=== PATIENT | male | born 1960 | race Caucasian/White ===

== ENCOUNTER 2017-04-14 01:02 | Outpatient (CLI) | payer OTHER | END 2017-04-14 01:03 | disposition short-term general hospital (02) | LOC: EMS 01:02 | PROVIDERS: ATTEND Surgery | DX: R07.9 Chest pain, unspecified (principal); R06.02 Shortness of breath | CPT/HCPCS: A0425; A0427 ==

== ENCOUNTER 2017-10-18 23:11 | Emergency (ER) | payer OTHER ==
[2017-10-18] MEDS ORDERED: MORPHINE 2 MG/ML CARPUJECT IVP STA (23:37)
[2017-10-18] MEDS ORDERED: SODIUM CHLORIDE 0.9% 1,000 ML IV ONE (23:37)
[2017-10-18] MEDS ORDERED: ONDANSETRON 4 MG/2 ML VIAL IVP STA (23:37)
[2017-10-18 23:51] LABS: BASOPHILS # (AUTO) 0.1 10^3/uL (0.0-0.1); BASOPHILS % (AUTO) 0.5 %; EOSINOPHILS # (AUTO) 0.3 10^3/uL (0.0-0.7); EOSINOPHILS % (AUTO) 2.7 %; HGB - HEMOGLOBIN 14.3 g/dL (14.0-18.0); LYMPHOCYTES # (AUTO) 3.3 10^3/uL (1.5-3.5); LYMPHOCYTES % (AUTO) 26.8 %; MEAN CORPUSCULAR HEMOGLOBIN 29.3 pg (27.0-31.0); MEAN CORPUSCULAR HGB CONC 33.8 g/dL (32.0-36.0); MEAN CORPUSCULAR VOLUME 86.6 fL (80.0-94.0); MEAN PLATELET VOLUME 7.3 fL (7.4-11.4); MONOCYTES # (AUTO) 1.1 10^3/uL (0.0-1.0); MONOCYTES % (AUTO) 9.1 %; NEUTROPHILS # (AUTO) 7.5 10^3/uL (1.5-6.6); NEUTROPHILS % (AUTO) 60.9 %; PLT - PLATELET COUNT 271 10^3/uL (130-450); RED BLOOD COUNT 4.87 10^6/uL (4.70-6.10); RED CELL DISTRIBUTION WIDTH 13.1 % (12.0-15.0); WHITE BLOOD COUNT 12.4 x10^3/uL (4.8-10.8)
[2017-10-19 00:15] LABS: ALBUMIN 4.1 g/dL (3.2-5.5); ALBUMIN/GLOBULIN RATIO 1.2 (1.0-2.2); BILIRUBIN,TOTAL 0.4 mg/dL (0.2-1.0); CALCIUM 9.6 mg/dL (8.5-10.3); CREATININE 1.4 mg/dL (0.6-1.2); MAGNESIUM 1.9 mg/dL (1.7-2.8); PHOSPHORUS 4.4 mg/dL (2.5-4.6); TOTAL PROTEIN 7.4 g/dL (6.7-8.2)
[2017-10-19 00:30] LABS: BILIRUBIN,URINE NEGATIVE (NEGATIVE); GLUCOSE, URINE (UA) NEGATIVE (NEGATIVE); KETONES,URINE (UA) NEGATIVE (NEGATIVE); LEUKOCYTE ESTERASE, URINE NEGATIVE (NEGATIVE); NITRITE,URINE NEGATIVE (NEGATIVE); OCCULT BLOOD,URINE NEGATIVE (NEGATIVE); PROTEIN,URINE NEGATIVE (NEGATIVE); UROBILINOGEN,URINE 0.2 (NORMAL) E.U./dL (NORMAL)
[2017-10-19 00:34] LABS: CLARITY,URINE CLEAR (CLEAR)
--- NOTE | 2017-10-19 00:52 | ED Physician Documentation ---
PD HPI NVD - Stated complaint Stated Complaint: LOOSE STOOL - Chief complaint Chief Complaint: Abd Pain - History obtained from History obtained from: Patient, Family - History of Present Illness Timing - onset: Today Timing - details: Gradual onset, Still present Associated symptoms: Abdominal pain, Loss of appetite Contributing factors: No: Travel, Recent antibiotics Similar symptoms before: No diagnosis Recently seen: Not recently seen - Additonal information Additional information: Patient is a 57 year old male with no significant past medical history who is presenting to the emergency department for diarrhea and abdominal cramping. patient states that it has been going on for the last couple of days. patient states that the cramping has become worse so he came in. patient states that the pain is mainly in the right lower quadrant. Patient had an appendectomy as a child. Review of Systems Constitutional: denies: Fever, Chills Eyes: denies: Decreased vision Ears: reports: Reviewed and negative Nose: reports: Reviewed and negative Throat: reports: Reviewed and negative Cardiac: denies: Chest pain / pressure, Palpitations Respiratory: denies: Dyspnea, Cough, Wheezing GI: reports: Abdominal Pain, Nausea, Diarrhea. denies: Vomiting : denies: Dysuria, Frequency Neurologic: denies: Generalized weakness, Focal weakness Immunocompromised: denies: Immunocompromised PD PAST MEDICAL HISTORY - Past Medical History Past Medical History: Yes Cardiovascular: Hypertension, [place] Endocrine/Autoimmune: Type 2 diabetes GI: Diverticulitis Musculoskeletal: Osteoarthritis - Past Surgical History Past Surgical History: Yes General: Appendectomy, Bowel surgery Ortho: Arthroscopic surgery Cardiovascular: Coronary stent HEENT: Tonsil/Adenoidectomy - Present Medications Home Medications: Ambulatory Orders Medication Instructions Recorded Confirmed Aspirin [Aspirin EC] 81 mg PO DAILY 10/18/17 10/18/17 Clopidogrel [Plavix] 1 tab PO DAILY 10/18/17 10/18/17 Insulin Glargine [Lantus Solostar] 10/18/17 Metoprolol Tartrate 1 tab PO BID 10/18/17 10/18/17 Dicyclomine [Bentyl] 10 mg PO QID #20 capsule 10/19/17 Levothyroxine Sodium [Synthroid] 1 tab PO DAILY 10/19/17 10/19/17 Losartan Potassium 1 tab PO DAILY 10/19/17 10/19/17 Ondansetron Odt [Zofran] 4 mg TL Q6H PRN #20 tablet 10/19/17 hydroCHLOROthiazide [Hydrodiuril] 1 tab PO DAILY 10/19/17 10/19/17 - Allergies Allergies/Adverse Reactions: Allergies Allergy/AdvReac Type Severity Reaction Status Date / Time Penicillins Allergy Rash Verified 10/18/17 23:21 Sulfa (Sulfonamide Allergy Rash Verified 10/18/17 23:21 Antibiotics) - Social History Does the pt smoke?: No Smoking Status: Never smoker Does the pt drink ETOH?: No Does the pt have substance abuse?: No - Immunizations Immunizations are current?: Yes - POLST Patient has POLST: No PD ED PE NORMAL - Vitals Vital signs reviewed: Yes - General General: Alert and oriented X 3, No acute distress, Well developed/nourished - HEENT HEENT: Atraumatic, PERRL - Neck Neck: Supple, no meningeal sign - Cardiac Cardiac: RRR, No murmur - Respiratory Respiratory: No respiratory distress - Derm Derm: Normal color, Warm and dry, No rash - Extremities Extremities: No deformity - Neuro Neuro: Alert and oriented X 3, No motor deficit, No sensory deficit Eye Opening: Spontaneous - Psych Psych: Normal mood PD ED PE EXPANDED - HEENT HEENT: Dry mucous membranes - Abdomen Abdomen: Tender to palpation, RLQ. No: Rebound, Guarding, RUQ Results - Vitals Vitals: Vital Signs - 24 hr 10/18/17 10/19/17 10/19/17 23:15 00:02 00:21 Temperature 36.5 C Heart Rate 80 69 76 Respiratory 22 16 16 Rate Blood Pressure 186/101 H 155/96 H 152/102 H O2 Saturation 97 95 97 Oxygen O2 Source Room air - Labs Labs: Laboratory Tests 10/18/17 10/18/17 10/18/17 23:35 23:35 23:37 WBC 12.4 H RBC 4.87 Hgb 14.3 Hct 42.2 MCV 86.6 MCH 29.3 MCHC 33.8 RDW 13.1 Plt Count 271 MPV 7.3 L Neut # 7.5 H Lymph # 3.3 [place] # 1.1 H Eos # 0.3 Baso # 0.1 Absolute Nucleated RBC 0.00 Nucleated RBC % 0.0 Sodium 136 Potassium 3.7 Chloride 97 L Carbon Dioxide 25 Anion Gap 14.0 H BUN 21 H Creatinine 1.4 H Estimated GFR (MDRD) 52 L Glucose 208 H Calcium 9.6 Phosphorus 4.4 Magnesium 1.9 Total Bilirubin 0.4 AST 15 ALT 14 Alkaline Phosphatase 60 Total Protein 7.4 Albumin 4.1 Globulin 3.3 Albumin/Globulin Ratio 1.2 Lipase 16 L Urine Color Urine Clarity Urine pH Ur Specific [place] Urine Protein Urine Glucose (UA) Urine Ketones Urine Occult Blood Urine Nitrite Urine Bilirubin Urine Urobilinogen Ur Leukocyte Esterase Ur Microscopic Review Urine Culture Comments Influenza A (Rapid) Negative Influenza B (Rapid) Negative Influenza Types A,B Ag - 10/19/17 00:23 WBC RBC Hgb Hct MCV MCH MCHC RDW Plt Count MPV Neut # Lymph # [place] # Eos # Baso # Absolute Nucleated RBC Nucleated RBC % Sodium Potassium Chloride Carbon Dioxide Anion Gap BUN Creatinine Estimated GFR (MDRD) Glucose Calcium Phosphorus Magnesium Total Bilirubin AST ALT Alkaline Phosphatase Total Protein Albumin Globulin Albumin/Globulin Ratio Lipase Urine Color YELLOW Urine Clarity CLEAR Urine pH 6.0 Ur Specific [place] 1.025 Urine Protein NEGATIVE Urine Glucose (UA) NEGATIVE Urine Ketones NEGATIVE Urine Occult Blood NEGATIVE Urine Nitrite NEGATIVE Urine Bilirubin NEGATIVE Urine Urobilinogen 0.2 (NORMAL) Ur Leukocyte Esterase NEGATIVE Ur Microscopic Review NOT INDICATED Urine Culture Comments NOT INDICATED Influenza A (Rapid) Influenza B (Rapid) Influenza Types A,B Ag PD MEDICAL DECISION MAKING - ED course Complexity details: reviewed old records, reviewed results, re-evaluated patient , considered differential, d/w patient, d/w family ED course: Patient was seen and examined at bedside. labs were drawn and urine was collected. patient was treated with IV fluids, zofran and morphine. Patient's labs showed a mild leukocytosis but patient does not have his appendix. Patient' s symptoms were likely viral in nature. patient required no further work up and was stable for discharge with outpatient follow up. Departure - Departure Disposition: 01 Home, Self Care Clinical Impression: Gastroenteritis Condition: Good Instructions: ED Gastroenteritis Viral Follow-Up: Sherron Hemphill MD [Primary Care Provider] - Within 3 Days Prescriptions: Dicyclomine [Bentyl] 10 mg PO QID #20 capsule Ondansetron Odt [Zofran] 4 mg TL Q6H PRN #20 tablet PRN Reason: Nausea / Vomiting Comments: Your symptoms today are likely viral in nature. It is important to take the zofran as needed for nausea and stay well hydrated with gatorade or other electrolyte solutions. You can take motrin or tylenol for pain and bentyl for abdominal spasm. You should follow up with your doctor if your symptoms persist. You may return to the emergency department at any time for new, worsening or uncontrollable symptoms.
[2017-10-19 01:16] VITALS: BP 140/92
== END 2017-10-19 01:10 | disposition home or self-care (01) ==
LOC: ED 23:11
DX: K52.9 Noninfective gastroenteritis and colitis, unspecified (principal); E11.9 Type 2 diabetes mellitus without complications; I10 Essential (primary) hypertension; I25.2 Old myocardial infarction; Z79.82 Long term (current) use of aspirin; Z79.4 Long term (current) use of insulin
CPT/HCPCS: 36415; 80053; 81001; 81003; 83690; 83735; 84100; 85025; 87086; 87275; 87276; 96361; 96374; 96375; 99283; 99284

== ENCOUNTER 2017-10-30 19:23 | Emergency (ER) | payer OTHER ==
--- NOTE | 2017-10-30 20:40 | ED Physician Documentation ---
PD HPI ABD PAIN - Stated complaint Stated Complaint: NAUSEA/R SIDE PAIN - Chief complaint Chief Complaint: Abd Pain - History obtained from History obtained from: Patient - History of Present Illness Timing - onset: Enter time (17:00), Today Timing - duration: Hours Timing - details: Abrupt onset, Waxing and waning Quality: Cramping, Pain Location: RUQ Radiation: Other (no radiation) Improved by: Other (no ameliorating factors) Worsened by: Other (no exacerbating factors) Associated symptoms: Nausea, Vomiting (only when pain is most intense). No: Fever, Diarrhea, Constipation Similar symptoms before: Has not had sx before Recently seen: Not recently seen - Additional information Additional information: right upper quadrant abdominal pain started 5 pm tonight, waxing and waning. similar episode 3 days ago but that resolved spontaneously and did not recur until this afternoon. Review of Systems Constitutional: reports: Sweats. denies: Fever, Chills Cardiac: reports: Reviewed and negative Respiratory: reports: Reviewed and negative GI: reports: Abdominal Pain, Nausea, Vomiting. denies: Abdominal Swelling, Constipation, Diarrhea : denies: Dysuria, Frequency PD PAST MEDICAL HISTORY - Past Medical History Past Medical History: Yes Cardiovascular: Hypertension, [place] Respiratory: None Neuro: None Endocrine/Autoimmune: Type 2 diabetes GI: Diverticulitis : None HEENT: None Psych: None Musculoskeletal: Osteoarthritis Derm: None - Past Surgical History Past Surgical History: Yes General: Appendectomy, Bowel surgery Ortho: Arthroscopic surgery Cardiovascular: Coronary stent HEENT: Tonsil/Adenoidectomy - Present Medications Home Medications: Ambulatory Orders Medication Instructions Recorded Confirmed Aspirin [Aspirin EC] 81 mg PO DAILY 10/18/17 10/18/17 Clopidogrel [Plavix] 1 tab PO DAILY 10/18/17 10/18/17 Insulin Glargine [Lantus Solostar] 10/18/17 Metoprolol Tartrate 1 tab PO BID 10/18/17 10/18/17 Dicyclomine [Bentyl] 10 mg PO QID #20 capsule 10/19/17 Levothyroxine Sodium [Synthroid] 1 tab PO DAILY 10/19/17 10/19/17 Losartan Potassium 1 tab PO DAILY 10/19/17 10/19/17 Ondansetron Odt [Zofran] 4 mg TL Q6H PRN #20 tablet 10/19/17 hydroCHLOROthiazide [Hydrodiuril] 1 tab PO DAILY 10/19/17 10/19/17 - Allergies Allergies/Adverse Reactions: Allergies Allergy/AdvReac Type Severity Reaction Status Date / Time Penicillins Allergy Rash Verified 10/30/17 19:32 Sulfa (Sulfonamide Allergy Rash Verified 10/30/17 19:32 Antibiotics) - Social History Does the pt smoke?: No Smoking Status: Never smoker Does the pt drink ETOH?: No Does the pt have substance abuse?: No - Immunizations Immunizations are current?: Yes - POLST Patient has POLST: No PD ED PE NORMAL - Vitals Vital signs reviewed: Yes - General General: Alert and oriented X 3, No acute distress, Well developed/nourished - HEENT HEENT: Moist mucous membranes - Cardiac Cardiac: RRR, No murmur - Respiratory Respiratory: No respiratory distress, Clear bilaterally - Abdomen Abdomen: Normal bowel sounds, Soft, Non tender, Non distended, No organomegaly - Back Back: No CVA TTP Results - Vitals Vitals: Vital Signs - 24 hr 10/30/17 10/31/17 10/31/17 19:28 00:29 01:36 Temperature 36.6 C 36.7 C Heart Rate 104 H 100 76 Respiratory 17 16 18 Rate Blood Pressure 160/105 H 132/93 H 132/68 H O2 Saturation 97 93 97 Oxygen O2 Source Room air - Labs Labs: Laboratory Tests 10/30/17 10/30/17 10/30/17 20:10 21:11 21:11 WBC 14.5 H RBC 5.02 Hgb 14.4 Hct 43.4 MCV 86.5 MCH 28.7 MCHC 33.3 RDW 12.9 Plt Count 277 MPV 7.6 Neut # 11.5 H Lymph # 1.8 [place] # 1.0 Eos # 0.1 Baso # 0.1 Absolute Nucleated RBC 0.00 Nucleated RBC % 0.0 Sodium 131 L Potassium 3.6 Chloride 95 L Carbon Dioxide 26 Anion Gap 10.0 BUN 18 Creatinine 1.1 Estimated GFR (MDRD) 69 L Glucose 319 H Calcium 9.0 Total Bilirubin 1.7 H AST 113 H ALT 57 Alkaline Phosphatase 179 H Total Protein 7.7 Albumin 3.9 Globulin 3.8 Albumin/Globulin Ratio 1.0 Lipase 25 Urine Color DARK YELLOW Urine Clarity CLEAR Urine pH 5.5 Ur Specific [place] >=1.030 H Urine Protein 30 H Urine Glucose (UA) 250 H Urine Ketones NEGATIVE Urine Occult Blood NEGATIVE Urine Nitrite NEGATIVE Urine Bilirubin NEGATIVE Urine Urobilinogen 1 (NORMAL) Ur Leukocyte Esterase NEGATIVE Urine RBC 0-5 Urine WBC 0-3 Ur Squamous Epith Cells NONE SEEN Urine Bacteria Rare Urine Casts 3-5 Fine Granular Ur Microscopic Review INDICATED Urine Culture Comments NOT INDICATED - Rads (name of study) RUQ US Radiology: Prelim report reviewed, See rad report PD MEDICAL DECISION MAKING - ED course Complexity details: reviewed results, re-evaluated patient, considered differential, d/w patient Departure - Departure Disposition: 01 Home, Self Care Clinical Impression: Abdominal pain Condition: Good Instructions: ED Abdominal Pain Unkn Cause Male Follow-Up: Sherron Hemphill MD [Primary Care Provider] - (Call to arrange for next available appointment) Discharge Date/Time: 10/31/17 01:41
[2017-10-30] MEDS ORDERED: KETOROLAC 60 MG/2 ML VIAL IVP STA (21:01)
[2017-10-30 21:18] LABS: BASOPHILS # (AUTO) 0.1 10^3/uL (0.0-0.1); EOSINOPHILS # (AUTO) 0.1 10^3/uL (0.0-0.7); EOSINOPHILS % (AUTO) 0.4 %; HGB - HEMOGLOBIN 14.4 g/dL (14.0-18.0); LYMPHOCYTES # (AUTO) 1.8 10^3/uL (1.5-3.5); LYMPHOCYTES % (AUTO) 12.3 %; MEAN CORPUSCULAR HEMOGLOBIN 28.7 pg (27.0-31.0); MEAN CORPUSCULAR HGB CONC 33.3 g/dL (32.0-36.0); MEAN CORPUSCULAR VOLUME 86.5 fL (80.0-94.0); MEAN PLATELET VOLUME 7.6 fL (7.4-11.4); MONOCYTES % (AUTO) 6.7 %; NEUTROPHILS # (AUTO) 11.5 10^3/uL (1.5-6.6); NEUTROPHILS % (AUTO) 79.6 %; PLT - PLATELET COUNT 277 10^3/uL (130-450); RED BLOOD COUNT 5.02 10^6/uL (4.70-6.10); RED CELL DISTRIBUTION WIDTH 12.9 % (12.0-15.0); WHITE BLOOD COUNT 14.5 x10^3/uL (4.8-10.8)
[2017-10-30 21:23] LABS: GLUCOSE, URINE (UA) 250 mg/dL (NEGATIVE); KETONES,URINE (UA) NEGATIVE (NEGATIVE); LEUKOCYTE ESTERASE, URINE NEGATIVE (NEGATIVE); NITRITE,URINE NEGATIVE (NEGATIVE); OCCULT BLOOD,URINE NEGATIVE (NEGATIVE); PH,URINE 5.5 PH (5.0-7.5); PROTEIN,URINE 30 mg/dL (NEGATIVE); UROBILINOGEN,URINE 1 (NORMAL) E.U./dL (NORMAL)
[2017-10-30 21:28] LABS: BILIRUBIN,URINE NEGATIVE (NEGATIVE); CLARITY,URINE CLEAR (CLEAR); ICTOTEST,URINE NEGATIVE
[2017-10-30 21:31] LABS: ALBUMIN 3.9 g/dL (3.2-5.5); BILIRUBIN,TOTAL 1.7 mg/dL (0.2-1.0); CREATININE 1.1 mg/dL (0.6-1.2); TOTAL PROTEIN 7.7 g/dL (6.7-8.2)
[2017-10-30 21:35] LABS: BACTERIA,URINE Rare /HPF (None Seen); RBC,URINE 0-5 /HPF (0-5); SQUAMOUS EPITHELIAL CELL,UR NONE SEEN (<= Few)
--- NOTE | 2017-10-30 22:28 | Ultrasound Preliminary Report ---
Exam: US ABDOMEN LIMITED IMPRESSION: 1. No gallstones are seen but there is gallbladder wall thickening and focal tenderness. Cholecystiti s not excluded. 2. Possible trace pericholecystic fluid. 3. No biliary dilatation seen. 4. Fatty liver. [facility] SITE ID: [id number]
--- NOTE | 2017-10-30 22:28 | Ultrasound Report ---
EXAM: ABDOMEN ULTRASOUND LIMITED, RUQ EXAM DATE: 10/30/2017 10:22 PM. CLINICAL HISTORY: Abdominal pain. COMPARISON: None. TECHNIQUE: Real-time scanning was performed with static images obtained. FINDINGS: Liver: Coarse heterogeneous echotexture with fatty infiltration. 17.4 cm. Main portal vein flow: Hepa topetal. Gallbladder: No gallstones are seen. There is gallbladder wall thickening measuring up to 6 mm. There may be trace pericholecystic fluid. Focal tenderness is noted over the gallbladder. Biliary System: CBD measures 5 mm. No intrahepatic or extrahepatic ductal dilatation. Other: Right kidney measures 11.3 cm and appears normal. Visualized portions of the pancreas are unre markable. IMPRESSION: 1. No gallstones are seen but there is gallbladder wall thickening and focal tenderness. Cholecystiti s not excluded. 2. Possible trace pericholecystic fluid. 3. No biliary dilatation seen. 4. Fatty liver. [facility] Referring Provider Line: [phone] SITE ID: [id number]
[2017-10-30] MEDS ORDERED: ONDANSETRON 4 MG/2 ML VIAL IVP STA (22:59)
[2017-10-31] MEDS ORDERED: ACETAMINOPHEN 325 MG TABLET PO STA (00:24)
[2017-10-31] MEDS ORDERED: oxyCODONE/ACET 5/325 Prepack 4 PO STA (01:17)
[2017-10-31 01:38] VITALS: BP 132/68
== END 2017-10-31 01:41 | disposition home or self-care (01) ==
LOC: ED 19:23
DX: R10.11 Right upper quadrant pain (principal); I10 Essential (primary) hypertension; I25.2 Old myocardial infarction; E11.9 Type 2 diabetes mellitus without complications; Z79.4 Long term (current) use of insulin; Z95.5 Presence of coronary angioplasty implant and graft; Z79.82 Long term (current) use of aspirin
CPT/HCPCS: 36415; 76705; 80053; 81001; 83690; 85025; 96374; 96375; 99283; A9270; 81003; 87086

== ENCOUNTER 2021-08-03 12:09 | Emergency (ER) | payer OTHER ==
[2021-08-03 12:33] LABS: BASOPHILS % (AUTO) 0.3 %; EOSINOPHILS # (AUTO) 0.4 10^3/uL (0.0-0.7); EOSINOPHILS % (AUTO) 3.9 %; HCT - HEMATOCRIT 51.9 % (42.0-52.0); HGB - HEMOGLOBIN 17.1 g/dL (14.0-18.0); LYMPHOCYTES # (AUTO) 3.5 10^3/uL (1.5-3.5); LYMPHOCYTES % (AUTO) 34.8 %; MEAN CORPUSCULAR HEMOGLOBIN 30.5 pg (27.0-31.0); MEAN CORPUSCULAR HGB CONC 32.9 g/dL (32.0-36.0); MEAN CORPUSCULAR VOLUME 92.5 fL (80.0-94.0); MEAN PLATELET VOLUME 9.1 fL (7.4-11.4); MONOCYTES % (AUTO) 9.7 %; NEUTROPHILS # (AUTO) 5.2 10^3/uL (1.5-6.6); NEUTROPHILS % (AUTO) 50.8 %; PLT - PLATELET COUNT 280 10^3/uL (130-450); RED BLOOD COUNT 5.61 10^6/uL (4.70-6.10); RED CELL DISTRIBUTION WIDTH 12.8 % (12.0-15.0); WHITE BLOOD COUNT 10.2 x10^3/uL (4.8-10.8)
[2021-08-03] MEDS ORDERED: NITROGLYCERIN 2% PASTE TOP STA (12:35)
[2021-08-03] MEDS ORDERED: NITROGLYCERIN SL 0.4 MG TABLET SL STA (12:35)
[2021-08-03] MEDS ORDERED: ASPIRIN CHEW 81 MG TABLET PO STA (12:35)
[2021-08-03] MEDS ORDERED: MORPHINE 2 MG/ML CARPUJECT IVP STA ×2 (12:36→13:14)
--- NOTE | 2021-08-03 12:38 | ED Physician Documentation ---
PD HPI CHEST PAIN - Stated complaint Stated Complaint: CP - Chief complaint Chief Complaint: Cardiac - History obtained from History obtained from: Patient - Additional information Additional information: 60-year-old gentleman with history of coronary disease, stented twice in the past, both under the care of Dr. Jimenez at [facility]. One 6 years ago and one 3 years ago. He was in his usual state of health checking email this morning at 9:30 AM, nothing exertional and developed substernal chest pressure radiating to the shoulders. It is associated with slight nausea and shortness of breath. It is similar to prior angina. No pedal edema or calf pain. No abdominal pain. Review of Systems Ten Systems: 10 systems reviewed and negative Constitutional: reports: Sweats Cardiac: reports: Chest pain / pressure. denies: Palpitations Respiratory: reports: Dyspnea. denies: Cough GI: denies: Abdominal Pain PD PAST MEDICAL HISTORY - Past Medical History Cardiovascular: Hypertension, [place] Respiratory: None Endocrine/Autoimmune: Type 2 diabetes GI: Diverticulitis : None HEENT: None Psych: None Musculoskeletal: Osteoarthritis Derm: None - Past Surgical History Past Surgical History: Yes General: Appendectomy, Bowel surgery Ortho: Arthroscopic surgery Cardiovascular: Coronary stent HEENT: Tonsil/Adenoidectomy - Present Medications Home Medications: Ambulatory Orders Medication Instructions Recorded Confirmed Aspirin [Aspirin EC] 81 mg PO DAILY 10/18/17 10/18/17 Clopidogrel [Plavix] 1 tab PO DAILY 10/18/17 10/18/17 Insulin Glargine [Lantus Solostar] 10/18/17 Metoprolol Tartrate 1 tab PO BID 10/18/17 10/18/17 Dicyclomine [Bentyl] 10 mg PO QID #20 capsule 10/19/17 Levothyroxine Sodium [Synthroid] 1 tab PO DAILY 10/19/17 10/19/17 Losartan Potassium 1 tab PO DAILY 10/19/17 10/19/17 Ondansetron Odt [Zofran] 4 mg TL Q6H PRN #20 tablet 10/19/17 hydroCHLOROthiazide [Hydrodiuril] 1 tab PO DAILY 10/19/17 10/19/17 - Allergies Allergies/Adverse Reactions: Allergies Allergy/AdvReac Type Severity Reaction Status Date / Time Penicillins Allergy Rash Verified 08/03/21 12:23 Sulfa (Sulfonamide Allergy Rash Verified 08/03/21 12:23 Antibiotics) - Social History Does the pt smoke?: No Smoking Status: Never smoker Does the pt drink ETOH?: No Does the pt have substance abuse?: No - Immunizations Immunizations are current?: Yes - POLST Patient has POLST: No PD ED PE NORMAL - Vitals Vital signs reviewed: Yes - General General: Alert and oriented X 3, Other (Appears uncomfortable) - HEENT HEENT: PERRL, EOMI - Neck Neck: Supple, no meningeal sign, No bony TTP - Cardiac Cardiac: RRR, No murmur - Respiratory Respiratory: No respiratory distress, Clear bilaterally - Abdomen Abdomen: Normal bowel sounds, Non tender - Back Back: No CVA TTP, No spinal TTP - Derm Derm: Normal color, Warm and dry - Extremities Extremities: No edema, No calf tenderness / cord - Neuro Neuro: Alert and oriented X 3, Normal speech - Psych Psych: Normal mood, Normal affect Results - Vitals Vitals: Vital Signs - 24 hr 08/03/21 08/03/21 08/03/21 12:19 12:53 13:52 Temperature 36.5 C Heart Rate 83 77 91 Respiratory 30 H 25 H 24 Rate Blood Pressure 144/83 H 126/92 H 137/91 H O2 Saturation 100 99 97 08/03/21 08/03/21 08/03/21 14:00 14:30 15:30 Temperature Heart Rate 82 78 78 Respiratory 20 20 19 Rate Blood Pressure 117/84 H 92/59 L 118/81 H O2 Saturation 97 98 98 08/03/21 08/03/21 08/03/21 16:00 16:30 17:30 Temperature Heart Rate 78 96 76 Respiratory 18 21 18 Rate Blood Pressure 123/81 H 107/76 108/82 H O2 Saturation 97 96 97 08/03/21 08/03/21 08/03/21 18:00 18:30 19:04 Temperature Heart Rate 72 78 82 Respiratory 19 20 19 Rate Blood Pressure 105/75 114/78 125/94 H O2 Saturation 99 97 98 08/03/21 08/03/21 08/03/21 19:30 20:00 20:30 Temperature Heart Rate 83 78 72 Respiratory 20 18 18 Rate Blood Pressure 110/77 113/72 111/82 H O2 Saturation 96 98 98 08/03/21 08/03/21 08/03/21 20:49 20:55 21:00 Temperature Heart Rate 82 83 74 Respiratory 23 18 18 Rate Blood Pressure 110/82 H 126/92 H 118/72 O2 Saturation 98 97 98 08/03/21 08/03/21 21:30 22:00 Temperature Heart Rate 75 73 Respiratory 18 18 Rate Blood Pressure 108/74 94/58 L O2 Saturation 97 96 Oxygen O2 Source Room air - EKG (time done) 1217 Rate: Rate (enter#) (83) Rhythm: NSR, LAE Cascade: LAD QRS: Normal Ischemia: Non specific changes (He has submillimeter ST elevation especially in V2 and V3, it is not diagnostic for STEMI, but it is distinctly changed since the last EKG on the chart dated March 26, 2015.) 1237 Rate: Rate (enter#) (69) Rhythm: NSR Cascade: LAD Intervals: Normal AR Ischemia: Non specific changes (but no change from EKG #1 done at 1217pm today) 2020 Rate: Rate (enter#) (74) Rhythm: NSR Cascade: Normal Intervals: Normal AR QRS: Normal Ischemia: Non specific changes (Slightly improved ST elevation in V2 and V3 since earlier in the day.) - Labs Labs: Laboratory Tests 08/03/21 08/03/21 08/03/21 12:28 12:28 12:28 WBC 10.2 RBC 5.61 Hgb 17.1 Hct 51.9 MCV 92.5 MCH 30.5 MCHC 32.9 RDW 12.8 Plt Count 280 MPV 9.1 Neut # (Auto) 5.2 Lymph # (Auto) 3.5 [place] # (Auto) 1.0 Eos # (Auto) 0.4 Baso # (Auto) 0.0 Absolute Nucleated RBC 0.00 Nucleated RBC % 0.0 Sodium 134 L Potassium 4.3 Chloride 100 L Carbon Dioxide 22 Anion Gap 12.0 BUN 27 H Creatinine 1.1 Estimated GFR (MDRD) 68 L Glucose 277 H Calcium 9.7 Total Bilirubin 1.1 H AST 20 ALT 24 Alkaline Phosphatase 81 Troponin I High Sens 88.7 H* Total Protein 8.0 Albumin 4.5 Globulin 3.5 Albumin/Globulin Ratio 1.3 Lipase 109 H Nasal Adenovirus (PCR) Nasal B. parapertussis DNA (PCR) Nasal Coronavir 229E PCR Nasal Coronavir HKU1 PCR Nasal Coronavir NL63 PCR Nasal Coronavir OC43 PCR Nasal Enterovir/Rhinovir PCR Nasal Influenza B PCR Nasal Influenza A PCR Nasal Parainfluen 1 PCR Nasal Parainfluen 2 PCR Nasal Parainfluen 3 PCR Nasal Parainfluen 4 PCR Nasal RSV (PCR) Nasal B.pertussis DNA PCR Nasal C.pneumoniae (PCR) Donte Human Metapneumo PCR Nasal M.pneumoniae (PCR) Nasal SARS-CoV-2 (PCR) 08/03/21 08/03/21 08/03/21 13:15 14:38 21:08 WBC RBC Hgb Hct MCV MCH MCHC RDW Plt Count MPV Neut # (Auto) Lymph # (Auto) [place] # (Auto) Eos # (Auto) Baso # (Auto) Absolute Nucleated RBC Nucleated RBC % Sodium Potassium Chloride Carbon Dioxide Anion Gap BUN Creatinine Estimated GFR (MDRD) Glucose Calcium Total Bilirubin AST ALT Alkaline Phosphatase Troponin I High Sens 138.0 H* 550.6 H* Total Protein Albumin Globulin Albumin/Globulin Ratio Lipase Nasal Adenovirus (PCR) NOT DETECTED Nasal B. parapertussis DNA (PCR) NOT DETECTED Nasal Coronavir 229E PCR NOT DETECTED Nasal Coronavir HKU1 PCR NOT DETECTED Nasal Coronavir NL63 PCR NOT DETECTED Nasal Coronavir OC43 PCR NOT DETECTED Nasal Enterovir/Rhinovir PCR NOT DETECTED Nasal Influenza B PCR NOT DETECTED Nasal Influenza A PCR NOT DETECTED Nasal Parainfluen 1 PCR NOT DETECTED Nasal Parainfluen 2 PCR NOT DETECTED Nasal Parainfluen 3 PCR NOT DETECTED Nasal Parainfluen 4 PCR NOT DETECTED Nasal RSV (PCR) NOT DETECTED Nasal B.pertussis DNA PCR NOT DETECTED Nasal C.pneumoniae (PCR) NOT DETECTED Donte Human Metapneumo PCR NOT DETECTED Nasal M.pneumoniae (PCR) NOT DETECTED Nasal SARS-CoV-2 (PCR) NOT DETECTED - Rads (name of study) 1v CX-ray is unremarkable Radiology: EMP read contemporaneously PD MEDICAL DECISION MAKING - ED course ED course: 60-year-old gentleman with known coronary disease presents with his anginal equivalent for just a few hours with some EKG changes that are not dynamic here but changed since the last EKG on the chart here. We treated his pain with nitroglycerin and morphine. Gave him aspirin. Subsequently his troponin was positive into this we added subcutaneous Lovenox, nitroglycerin drip, oral metoprolol and atorvastatin. Case was discussed by phone with Dr. Vega, exterior designer at [facility] approximately [phone] who recommended the addition of Plavix and accepted the patient in transfer pending bed availability. There is a significant delay to transfer due to lack of bed availability and he is boarding in the emergency department at shift change, I have written for her scheduled medications. - Critical Care Time(min): 40 Time Includes: Direct patient care, Review records, Reassess patient, Document care, Coordinate care, Medical consult, Family consult for tx dec Data interpretation: Labs, Prior EKG Procedures included in critical care time: Peripheral IV Procedures excluded from critical care time: EKG Departure - Departure Disposition: 02 Transfer Acute Care Hosp Clinical Impression: Non-STEMI (non-ST elevated myocardial infarction) Condition: Serious
[2021-08-03 12:51] LABS: ALBUMIN 4.5 g/dL (3.2-5.5); ALBUMIN/GLOBULIN RATIO 1.3 (1.0-2.2); BILIRUBIN,TOTAL 1.1 mg/dL (0.2-1.0); CALCIUM 9.7 mg/dL (8.5-10.3); CREATININE 1.1 mg/dL (0.6-1.2); POTASSIUM 4.3 mmol/L (3.5-5.0)
[2021-08-03] MEDS ORDERED: ATORVASTATIN 40 MG TABLET PO STA (12:59)
[2021-08-03] MEDS ORDERED: METOPROLOL TARTRATE 50 MG TABLET PO STA (12:59)
[2021-08-03] MEDS ORDERED: ENOXAPARIN 120 MG/0.8 ML SYRINGE SUBQ STA (12:59)
--- NOTE | 2021-08-03 13:02 | XRAY Report ---
PROCEDURE: Chest 1 View X-Ray INDICATIONS: Chest Pain TECHNIQUE: One view of the chest was acquired. COMPARISON: None FINDINGS: Surgical changes and devices: None. Lungs and pleura: No pleural effusions or pneumothorax. Lungs are clear. Mediastinum: Mediastinal contours appear normal. Heart size is normal. Bones and chest wall: No suspicious bony lesions. Overlying soft tissues appear unremarkable. IMPRESSION: No acute process. Reviewed by: Barrie Gaming MD on 08/03/2021 1:00 PM [facility] Approved by: Barrie Gaming MD on 08/03/2021 1:00 PM [facility] Station ID: [id number]
[2021-08-03] MEDS ORDERED: NITROGLYCERIN 50 MG/250 ML 50 MG/250 ML BOTTLE IV STA (13:16)
[2021-08-03] MEDS ORDERED: CLOPIDOGREL 300 MG TABLET PO STA (13:17)
[2021-08-03 14:43] LABS: B. PARAPERTUSSIS- RESP PCR PAN NOT DETECTED; B. PERTUSSIS- RESP PCR PANEL NOT DETECTED; C. PNEUMONIAE- RESP PCR PANEL NOT DETECTED; CORONAVIRUS 229E-RESP PCR NOT DETECTED; CORONAVIRUS HKU1-RESP PCR NOT DETECTED; CORONAVIRUS NL63-RESP PCR NOT DETECTED; CORONAVIRUS OC43-RESP PCR NOT DETECTED; HUMAN METAPNEUMOVIRUS NOT DETECTED; INFLUENZA A- RESP PCR PANEL NOT DETECTED; INFLUENZA B - RESP PCR PANEL NOT DETECTED; M. PNEUMONIAE- RESP PCR PANEL NOT DETECTED; PARAINFLUENZA VIRUS 1 NOT DETECTED; PARAINFLUENZA VIRUS 2 NOT DETECTED; PARAINFLUENZA VIRUS 3 NOT DETECTED; PARAINFLUENZA VIRUS 4 NOT DETECTED; RHINOVIRUS/ENTEROVIRUS NOT DETECTED; RSV- RESP PCR PANEL NOT DETECTED; SARS-CoV-2 -RESP PCR PANEL NOT DETECTED
[2021-08-03] MEDS: METOPROLOL TARTRATE 50 MG TABLET PO SCH (21:25)
[2021-08-03] MEDS: ENOXAPARIN 120 MG/0.8 ML SYRINGE SUBQ SCH (21:35)
[2021-08-03] MEDS ORDERED: SODIUM CHLORIDE 0.9% 500 ML IV STA (22:25)
--- NOTE | 2021-08-03 23:07 | XRAY Report ---
PROCEDURE: Chest 1 View X-Ray INDICATIONS: chest pain TECHNIQUE: One view of the chest was acquired. COMPARISON: Chest radiograph from earlier same day and 03/26/2015 FINDINGS: Surgical changes and devices: None. Lungs and pleura: No pleural effusions or pneumothorax. Lungs are clear. Mediastinum: Mediastinal contours appear normal. Heart size is normal. Bones and chest wall: No suspicious bony lesions. Overlying soft tissues appear unremarkable. IMPRESSION: Stable examination of the chest without acute cardiopulmonary abnormalities or focal airspace disease . Reviewed by: Ivan Dinh MD on 08/03/2021 11:06 PM [facility] Approved by: Ivan Dinh MD on 08/03/2021 11:06 PM PST Station ID: [id number]
[2021-08-04 07:56] LABS: BASOPHILS # (AUTO) 0.1 10^3/uL (0.0-0.1); BASOPHILS % (AUTO) 0.6 %; EOSINOPHILS # (AUTO) 0.4 10^3/uL (0.0-0.7); EOSINOPHILS % (AUTO) 4.9 %; HCT - HEMATOCRIT 47.1 % (42.0-52.0); HGB - HEMOGLOBIN 15.7 g/dL (14.0-18.0); LYMPHOCYTES # (AUTO) 3.1 10^3/uL (1.5-3.5); LYMPHOCYTES % (AUTO) 38.9 %; MEAN CORPUSCULAR HEMOGLOBIN 31.2 pg (27.0-31.0); MEAN CORPUSCULAR HGB CONC 33.3 g/dL (32.0-36.0); MEAN CORPUSCULAR VOLUME 93.5 fL (80.0-94.0); MEAN PLATELET VOLUME 8.8 fL (7.4-11.4); MONOCYTES # (AUTO) 0.9 10^3/uL (0.0-1.0); NEUTROPHILS # (AUTO) 3.6 10^3/uL (1.5-6.6); NEUTROPHILS % (AUTO) 44.3 %; PLT - PLATELET COUNT 238 10^3/uL (130-450); RED BLOOD COUNT 5.04 10^6/uL (4.70-6.10); RED CELL DISTRIBUTION WIDTH 12.9 % (12.0-15.0)
[2021-08-04 08:04] LABS: CALCIUM 9.1 mg/dL (8.5-10.3); CREATININE 1.1 mg/dL (0.6-1.2); POTASSIUM 3.7 mmol/L (3.5-5.0)
[2021-08-04] MEDS ORDERED: CLOPIDOGREL 75 MG TABLET PO SCH (09:00)
[2021-08-04] MEDS ORDERED: ASPIRIN CHEW 81 MG TABLET PO SCH (09:00)
[2021-08-04] MEDS ORDERED: ATORVASTATIN 40 MG TABLET PO SCH (09:00)
[2021-08-04] MEDS: METOPROLOL TARTRATE 50 MG TABLET PO SCH (09:04)
[2021-08-04] MEDS: ENOXAPARIN 120 MG/0.8 ML SYRINGE SUBQ SCH (09:35)
--- NOTE | 2021-08-04 18:49 | ED Physician Documentation ---
ED Addendum - Addendum Addendum: 08/04/21 18:48 Patient was received as signout from off going physician, please see their documentation for detail. Labs and imaging reviewed. Patient noted to have a slight downtrend in early a.m. troponin. No report of recurrent chest pain in the emergency department throughout the entirety of my shift. I did discuss his case with [facility] and he is pending transport to [facility] at this time for further evaluation and treatment.
[2021-08-04] MEDS ORDERED: NITROGLYCERIN 2% PASTE TOP STA (20:06)
[2021-08-04 20:19] VITALS: BP 120/85
== END 2021-08-04 20:31 | disposition short-term general hospital (02) ==
LOC: ED 12:09
DX: I21.4 Non-ST elevation (NSTEMI) myocardial infarction (principal); I10 Essential (primary) hypertension; E11.9 Type 2 diabetes mellitus without complications; Z79.4 Long term (current) use of insulin; Z20.822 Contact with and (suspected) exposure to COVID-19
CPT/HCPCS: 0202U; 36415; 71045; 80048; 80053; 83690; 84484; 85025; 93005; 93306; 96365; 96366; 96372; 96375; 96376; 99285; 99291; A9270; J1650

== ENCOUNTER 2021-08-04 20:31 | Outpatient (CLI) | payer OTHER | END 2021-08-04 20:32 | disposition short-term general hospital (02) | LOC: EMS 20:31 | PROVIDERS: ATTEND Student in an Organized Health Care Education/Training Program | DX: I21.4 Non-ST elevation (NSTEMI) myocardial infarction (principal) | CPT/HCPCS: A0425; A0426 ==

== ENCOUNTER 2021-09-28 18:15 | Outpatient (CLI) | payer OTHER | END 2021-09-28 18:16 | disposition short-term general hospital (02) | LOC: EMS 18:15 | DX: R42 Dizziness and giddiness (principal); R53.1 Weakness; Z91.81 History of falling | CPT/HCPCS: A0425; A0427 ==

== ENCOUNTER 2022-07-18 15:28 | Outpatient (CLI) | payer OTHER ==
--- NOTE | 2022-07-18 17:05 | Ultrasound Report ---
PROCEDURE: Duplex Ext Veins Bilateral INDICATIONS: Left leg edema. TECHNIQUE: Real-time imaging, as well as color and pulse Doppler interrogation, were performed of the deep veins of both legs from the inguinal ligament to the popliteal fossa. COMPARISON: None FINDINGS: The deep veins are normally compressible, and free of intraluminal thrombus. Color and pu lse Doppler demonstrate normal phasic intravascular flow. There is normal augmentation response to d istal compression maneuver. IMPRESSION: No deep venous thrombosis. Reviewed by: Tatiana Brand MD on 07/18/2022 5:03 PM PST Approved by: Tatiana Brand MD on 07/18/2022 5:03 PM PST Station ID: [id number]
== END 2022-07-18 15:29 | disposition home or self-care (01) ==
LOC: DI 15:28
PROVIDERS: ATTEND Internal Medicine Endocrinology, Diabetes & Metabolism
DX: M79.89 Other specified soft tissue disorders (principal)
CPT/HCPCS: 93970

== ENCOUNTER 2022-08-06 17:10 | Emergency (ER) | payer OTHER ==
--- NOTE | 2022-08-06 18:10 | XRAY Report ---
PROCEDURE: Chest 2 View X-Ray INDICATIONS: cough TECHNIQUE: 2 views of the chest were acquired. COMPARISON: 08/03/2021 FINDINGS: Surgical changes and devices: None. Lungs and pleura: No pleural effusions or pneumothorax. Lungs are clear. Low lung volumes. Mediastinum: Mediastinal contours are normal. Heart size is normal. Bones and chest wall: No suspicious bony abnormalities. Soft tissues appear unremarkable. IMPRESSION: No acute radiographic abnormality. Reviewed by: Jesus Song MD on 08/06/2022 6:09 PM [facility] Approved by: Jesus Song MD on 08/06/2022 6:09 PM [facility] Station ID: [id number]
[2022-08-06 19:07] LABS: CORONAVIRUS 229E-RESP PCR NOT DETECTED; CORONAVIRUS HKU1-RESP PCR NOT DETECTED; CORONAVIRUS NL63-RESP PCR NOT DETECTED; CORONAVIRUS OC43-RESP PCR NOT DETECTED; HUMAN METAPNEUMOVIRUS NOT DETECTED; RHINOVIRUS/ENTEROVIRUS NOT DETECTED; SARS-CoV-2 -RESP PCR PANEL NOT DETECTED
[2022-08-06 19:08] LABS: B. PARAPERTUSSIS- RESP PCR PAN NOT DETECTED; B. PERTUSSIS- RESP PCR PANEL NOT DETECTED; C. PNEUMONIAE- RESP PCR PANEL NOT DETECTED; INFLUENZA A H3- RESP PCR PANEL DETECTED; INFLUENZA B - RESP PCR PANEL NOT DETECTED; M. PNEUMONIAE- RESP PCR PANEL NOT DETECTED; PARAINFLUENZA VIRUS 1 NOT DETECTED; PARAINFLUENZA VIRUS 2 NOT DETECTED; PARAINFLUENZA VIRUS 3 NOT DETECTED; PARAINFLUENZA VIRUS 4 NOT DETECTED; RSV- RESP PCR PANEL NOT DETECTED
[2022-08-06] MEDS ORDERED: BENZONATATE 100 MG CAPSULE PO STA (20:10)
--- NOTE | 2022-08-06 20:11 | ED Physician Documentation ---
PD HPI URI - Stated complaint Stated Complaint: FEVER - Chief complaint Chief Complaint: Resp - History obtained from History obtained from: Patient - History of Present Illness Timing - onset: How many days ago (3) Timing duration: Days (3) Timing details: Gradual onset Pain level max: 2 Pain level now: 2 Associated symptoms: Fever, Rhinorrhea, Dry cough. No: Hemoptysis, Dyspnea, NVD Contributing factors: Sick contact - Additional information Additional information: Patient is a 61-year-old male who has been sick for the past 3 days. He states fever, body aches, cough. No vomiting. Better with Motrin and Tylenol. Nothing makes it worse. Review of Systems Ten Systems: 10 systems reviewed and negative Constitutional: reports: Fever, Chills, Myalgias Nose: reports: Rhinorrhea / runny nose : denies: Dysuria Skin: denies: Rash Neurologic: denies: Seizure PD PAST MEDICAL HISTORY - Past Medical History Cardiovascular: Hypertension, [place] Respiratory: None Endocrine/Autoimmune: Type 2 diabetes GI: Diverticulitis : None HEENT: None Psych: None Musculoskeletal: Osteoarthritis Derm: None - Past Surgical History Past Surgical History: Yes General: Appendectomy, Bowel surgery Ortho: Arthroscopic surgery Cardiovascular: Coronary stent HEENT: Tonsil/Adenoidectomy - Present Medications Home Medications: Ambulatory Orders Medication Instructions Recorded Confirmed Aspirin [Aspirin EC] 81 mg PO DAILY 10/18/17 10/18/17 Clopidogrel [Plavix] 1 tab PO DAILY 10/18/17 10/18/17 Insulin Glargine [Lantus Solostar] 10/18/17 Metoprolol Tartrate 1 tab PO BID 10/18/17 10/18/17 Dicyclomine [Bentyl] 10 mg PO QID #20 capsule 10/19/17 Levothyroxine Sodium [Synthroid] 1 tab PO DAILY 10/19/17 10/19/17 Losartan Potassium 1 tab PO DAILY 10/19/17 10/19/17 Ondansetron Odt [Zofran] 4 mg TL Q6H PRN #20 tablet 10/19/17 hydroCHLOROthiazide [Hydrodiuril] 1 tab PO DAILY 10/19/17 10/19/17 Benzonatate [Tessalon] 200 mg PO TID PRN #30 cap 08/06/22 - Allergies Allergies/Adverse Reactions: Allergies Allergy/AdvReac Type Severity Reaction Status Date / Time Penicillins Allergy Rash Verified 08/03/21 12:23 Sulfa (Sulfonamide Allergy Rash Verified 08/03/21 12:23 Antibiotics) - Social History Does the pt smoke?: No Smoking Status: Never smoker Does the pt drink ETOH?: No Does the pt have substance abuse?: No - Immunizations Immunizations are current?: Yes - POLST Patient has POLST: No PD ED PE NORMAL - Vitals Vital signs reviewed: Yes - General General: Alert and oriented X 3, No acute distress, Well developed/nourished - HEENT HEENT: Moist mucous membranes - Neck Neck: Supple, no meningeal sign - Cardiac Cardiac: RRR, Strong equal pulses - Respiratory Respiratory: No respiratory distress, Clear bilaterally - Abdomen Abdomen: Soft, Non tender, Non distended - Derm Derm: Warm and dry - Extremities Extremities: No edema, No calf tenderness / cord - Neuro Neuro: Alert and oriented X 3 - Psych Psych: Normal mood, Normal affect Results - Vitals Vitals: Vital Signs - 24 hr 08/06/22 08/06/22 08/06/22 17:33 19:34 20:19 Temperature 37.4 C 37.6 C Heart Rate 114 H 95 105 H Respiratory 22 18 18 Rate Blood Pressure 146/95 H 122/86 H 136/88 H O2 Saturation 99 95 95 Oxygen O2 Source Room air - Labs Labs: Laboratory Tests 08/06/22 17:35 Nasal Adenovirus (PCR) NOT DETECTED Nasal B. parapertussis DNA (PCR) NOT DETECTED Nasal Coronavir 229E PCR NOT DETECTED Nasal Coronavir HKU1 PCR NOT DETECTED Nasal Coronavir NL63 PCR NOT DETECTED Nasal Coronavir OC43 PCR NOT DETECTED Nasal Enterovir/Rhinovir PCR NOT DETECTED Nasal Influenza A H3 PCR DETECTED A Nasal Influenza B PCR NOT DETECTED Nasal Parainfluen 1 PCR NOT DETECTED Nasal Parainfluen 2 PCR NOT DETECTED Nasal Parainfluen 3 PCR NOT DETECTED Nasal Parainfluen 4 PCR NOT DETECTED Nasal RSV (PCR) NOT DETECTED Nasal B.pertussis DNA PCR NOT DETECTED Nasal C.pneumoniae (PCR) NOT DETECTED Donte Human Metapneumo PCR NOT DETECTED Nasal M.pneumoniae (PCR) NOT DETECTED Nasal SARS-CoV-2 (PCR) NOT DETECTED - Rads (name of study) cxr Radiology: Final report received, EMP read contemporaneously, See rad report PD MEDICAL DECISION MAKING - ED course Complexity details: reviewed results, re-evaluated patient, considered differential, d/w patient ED course: 61-year-old male positive for influenza. No acute findings on x-ray. Patient is well-appearing, nontoxic. No hypoxia. No respiratory distress. Patient has been sick longer than 48 hours, therefore no antiviral medications. We will continue supportive care and have him follow-up with his doctor. Eating and drinking without difficulty here. Patient counseled regarding signs and symptoms for which I believe and urgent re-evaluation would be necessary. Patient with good understanding of and agreement to plan and is comfortable going home at this time This document was made in part using voice recognition software. While efforts are made to proofread this document, sound alike and grammatical errors may occur. Departure - Departure Disposition: 01 Home, Self Care Clinical Impression: Influenza A Condition: Good Instructions: ED Flu Follow-Up: ARIANE BLUE DO [Primary Care Provider] - Prescriptions: Benzonatate [Tessalon] 200 mg PO TID PRN #30 cap PRN Reason: Cough Comments: Please follow-up with your doctor for further care. Please drink plenty of fluids and rest. Return if you worsen. There is no evidence of pneumonia on your chest x-ray tonight. You have tested positive for influenza A. Your prescription was sent to [facility] in [place]. Discharge Date/Time: 08/06/22 20:19
[2022-08-06 20:20] VITALS: BP 136/88
== END 2022-08-06 20:19 | disposition home or self-care (01) ==
LOC: ED 17:10
DX: J10.1 Influenza due to other identified influenza virus with other respiratory manifestations (principal); Z20.822 Contact with and (suspected) exposure to COVID-19
CPT/HCPCS: 71046; 87633; 99282; 99284; A9270

== ENCOUNTER 2023-01-21 00:40 | Outpatient (CLI) | payer OTHER | END 2023-01-21 00:41 | disposition short-term general hospital (02) | LOC: EMS 00:40 | DX: R07.89 Other chest pain (principal); R11.0 Nausea; R06.00 Dyspnea, unspecified | CPT/HCPCS: A0425; A0427 ==

== ENCOUNTER 2023-05-05 16:14 | Outpatient (CLI) | payer OTHER ==
--- NOTE | 2023-05-05 16:57 | XRAY Report ---
PROCEDURE: Knee 3 View LT INDICATIONS: CONTUSION OF LEFT KNEE,INITIAL TECHNIQUE: 3 views of the left knee(s) were acquired. COMPARISON: None. FINDINGS: Bones: No fractures or dislocations. No suspicious bony lesions. Tricompartment osteoarthritic corley ges with severe joint space narrowing medially. Soft tissues: Moderate knee joint effusion. No suspicious soft tissue calcifications or masses. IMPRESSION: No acute fracture or dislocation. Severe tricompartmental osteoarthritic changes. Reviewed by: Clem Gomez MD on 05/05/2023 4:55 PM PDT Approved by: Clem Gomez MD on 05/05/2023 4:55 PM PDT Station ID: [id number]
== END 2023-05-05 16:15 | disposition home or self-care (01) ==
LOC: DI 16:14
PROVIDERS: ATTEND Registered Nurse
DX: S80.02XA Contusion of left knee, initial encounter (principal); M17.12 Unilateral primary osteoarthritis, left knee

== ENCOUNTER 2023-07-02 05:18 | Outpatient (CLI) | payer OTHER | END 2023-07-02 23:59 | disposition short-term general hospital (02) | LOC: EMS 05:18 | DX: R07.9 Chest pain, unspecified (principal); R06.02 Shortness of breath; E11.65 Type 2 diabetes mellitus with hyperglycemia | CPT/HCPCS: A0425; A0427 ==

== ENCOUNTER 2023-08-14 12:03 | Outpatient (CLI) | payer MEDICARE, OTHER | END 2023-08-14 12:04 | disposition critical access hospital (66) | LOC: EMS 12:03 | DX: R06.02 Shortness of breath (principal); R05.9 Cough, unspecified; E11.65 Type 2 diabetes mellitus with hyperglycemia; F41.9 Anxiety disorder, unspecified; Z79.84 Long term (current) use of oral hypoglycemic drugs | CPT/HCPCS: A0425; A0429 ==

== ENCOUNTER 2023-08-14 12:26 | Emergency (ER) | payer MEDICARE, OTHER ==
[2023-08-14] MEDS ORDERED: SODIUM CHLORIDE 0.9% 1,000 ML IV STA (12:40)
--- NOTE | 2023-08-14 12:41 | ED Physician Documentation ---
History of Present Illness - Stated complaint Stated Complaint: ELEVATED BG - Chief complaint Chief Complaint: Resp - History obtained from History obtained from: Patient - Additonal information Additional information: 62-year-old gentleman with diabetes stopped taking his insulin a few days ago "because I was lazy." Starting today he felt like he was having inappropriate rapid breathing. He is not short of breath per se. He denies abdominal pain, nausea, chest pain, or other complaints. He has not been checking his blood sugars either. PD PAST MEDICAL HISTORY - Past Medical History Cardiovascular: Hypertension, [place] Respiratory: None Endocrine/Autoimmune: Type 2 diabetes GI: Diverticulitis : None HEENT: None Psych: None Musculoskeletal: Osteoarthritis Derm: None - Past Surgical History Past Surgical History: Yes General: Appendectomy, Bowel surgery Ortho: Arthroscopic surgery Cardiovascular: Coronary stent HEENT: Tonsil/Adenoidectomy - Present Medications Home Medications: Ambulatory Orders Medication Instructions Recorded Confirmed Aspirin [Aspirin EC] 81 mg PO DAILY 10/18/17 10/18/17 Clopidogrel [Plavix] 1 tab PO DAILY 10/18/17 10/18/17 Insulin Glargine [Lantus Solostar] 10/18/17 Metoprolol Tartrate 1 tab PO BID 10/18/17 10/18/17 Dicyclomine [Bentyl] 10 mg PO QID #20 capsule 10/19/17 Levothyroxine Sodium [Synthroid] 1 tab PO DAILY 10/19/17 10/19/17 Losartan Potassium 1 tab PO DAILY 10/19/17 10/19/17 Ondansetron Odt [Zofran] 4 mg TL Q6H PRN #20 tablet 10/19/17 hydroCHLOROthiazide [Hydrodiuril] 1 tab PO DAILY 10/19/17 10/19/17 Benzonatate [Tessalon] 200 mg PO TID PRN #30 cap 08/06/22 - Allergies Allergies/Adverse Reactions: Allergies Allergy/AdvReac Type Severity Reaction Status Date / Time Penicillins Allergy Rash Verified 08/03/21 12:23 Sulfa (Sulfonamide Allergy Rash Verified 08/03/21 12:23 Antibiotics) - Social History Does the pt smoke?: No Smoking Status: Never smoker Does the pt drink ETOH?: No Does the pt have substance abuse?: No - Immunizations Immunizations are current?: Yes - POLST Patient has POLST: No PD ED PE NORMAL - Vitals Vital signs reviewed: Yes (He is tachypneic and tachycardic) - General General: Alert and oriented X 3, No acute distress - HEENT HEENT: PERRL, EOMI - Neck Neck: Supple, no meningeal sign, No bony TTP - Cardiac Cardiac: Other (Tachycardic but regular without murmur) - Respiratory Respiratory: Other (Rapid deep breathing but clear lungs) - Abdomen Abdomen: Non tender - Extremities Extremities: No edema - Neuro Neuro: Alert and oriented X 3 Results - Vitals Vitals: Vital Signs - 24 hr 08/14/23 08/14/23 12:35 14:41 Temperature 37 C Heart Rate 113 H 92 Respiratory 24 18 Rate Blood Pressure 113/82 H 109/77 O2 Saturation 93 99 Oxygen O2 Source Room air - Labs Labs: Laboratory Tests 08/14/23 08/14/23 08/14/23 12:51 12:51 12:51 WBC 11.2 H RBC 5.17 Hgb 15.7 Hct 47.2 MCV 91.3 MCH 30.4 MCHC 33.3 RDW 12.3 Plt Count 301 MPV 9.1 Neut # (Auto) 6.0 Lymph # (Auto) 3.9 H Tompkins # (Auto) 1.2 H Eos # (Auto) 0.1 Baso # (Auto) 0.1 Absolute Nucleated RBC 0.00 Nucleated RBC % 0.0 VBG pH 7.351 VBG pCO2 45.2 VBG pO2 31.8 VBG HCO3 24.4 VBG Total CO2 25.8 VBG O2 Saturation 61.0 VBG Base Excess -1.5 Sodium 133 L Potassium 4.0 Chloride 97 L Carbon Dioxide 26 Anion Gap 10.0 BUN 22 H Creatinine 1.2 Estimated GFR (MDRD) 61 L Glucose 337 H POC Whole Bld Glucose Calcium 9.6 Phosphorus 3.9 Magnesium 1.6 L Total Bilirubin 0.7 AST 12 ALT 20 Alkaline Phosphatase 82 Total Protein 6.8 Albumin 4.3 Globulin 2.5 Albumin/Globulin Ratio 1.7 Serum Ketones NEGATIVE 08/14/23 14:54 WBC RBC Hgb Hct MCV MCH MCHC RDW Plt Count MPV Neut # (Auto) Lymph # (Auto) Tompkins # (Auto) Eos # (Auto) Baso # (Auto) Absolute Nucleated RBC Nucleated RBC % VBG pH VBG pCO2 VBG pO2 VBG HCO3 VBG Total CO2 VBG O2 Saturation VBG Base Excess Sodium Potassium Chloride Carbon Dioxide Anion Gap BUN Creatinine Estimated GFR (MDRD) Glucose POC Whole Bld Glucose 190 H Calcium Phosphorus Magnesium Total Bilirubin AST ALT Alkaline Phosphatase Total Protein Albumin Globulin Albumin/Globulin Ratio Serum Ketones PD Medical Decision Making - ED course ED course: 62-year-old gentleman has tachypnea without shortness of breath associated with noncompliance on his insulin regimen. He otherwise appears well and had no other initial complaints. Work-up in the emergency department consisted of a CBC showing mild leukocytosis/lymphocytosis. Venous blood gas was normal and he had no serum ketones, so not in DKA. BUN was up a bit consistent with dehydration and he had pseudohyponatremia and hyperglycemia and hypomagnesemia on CMP. His blood sugar which improved after some IV fluids and insulin. He did develop mild nausea in the emergency department and was given a dose of IV Zofran and also an oral dose of magnesium oxide for the mild hypomagnesemia. The patient was counseled as to the diagnosis and need for follow-up. I counseled the patient with regard to signs and symptoms that would necessitate an urgent reevaluation in the emergency department. They understand they are welcome to return at any time if worse or if not improving as expected. This document was made in part using voice recognition software. While efforts are made to proofread this documents, sound alike and grammatical errors may occur. Departure - Departure Disposition: 01 Home, Self Care Clinical Impression: Hyperglycemia, Tachypnea Condition: Good Record reviewed to determine appropriate education?: Yes Instructions: ED Hyperglycemia Diabetic Comments: Other than your blood sugar being high and mild evidence of dehydration, there were no worrisome findings today and you were not" diabetic ketoacidosis." You should restart your insulin. Return if worse or if new symptoms develop. Follow-up with your primary care physician, next available appointment. Forms: PCP List
[2023-08-14 12:57] LABS: BASOPHILS # (AUTO) 0.1 10^3/uL (0.0-0.1); BASOPHILS % (AUTO) 0.4 %; EOSINOPHILS # (AUTO) 0.1 10^3/uL (0.0-0.7); EOSINOPHILS % (AUTO) 0.5 %; HCT - HEMATOCRIT 47.2 % (42.0-52.0); HGB - HEMOGLOBIN 15.7 g/dL (14.0-18.0); LYMPHOCYTES # (AUTO) 3.9 10^3/uL (1.5-3.5); MEAN CORPUSCULAR HEMOGLOBIN 30.4 pg (27.0-31.0); MEAN CORPUSCULAR HGB CONC 33.3 g/dL (32.0-36.0); MEAN CORPUSCULAR VOLUME 91.3 fL (80.0-94.0); MEAN PLATELET VOLUME 9.1 fL (7.4-11.4); MONOCYTES # (AUTO) 1.2 10^3/uL (0.0-1.0); MONOCYTES % (AUTO) 10.5 %; NEUTROPHILS % (AUTO) 53.2 %; PLT - PLATELET COUNT 301 10^3/uL (130-450); RED BLOOD COUNT 5.17 10^6/uL (4.70-6.10); RED CELL DISTRIBUTION WIDTH 12.3 % (12.0-15.0); WHITE BLOOD COUNT 11.2 x10^3/uL (4.8-10.8)
--- NOTE | 2023-08-14 13:03 | XRAY Report ---
PROCEDURE: Chest 1 View X-Ray INDICATIONS: tachypnea TECHNIQUE: One view of the chest was acquired. COMPARISON: None. FINDINGS: Surgical changes and devices: None. Lungs and pleura: No pleural effusions or pneumothorax. Lungs are clear. Mediastinum: Mediastinal contours appear normal. Heart size is normal. Bones and chest wall: No suspicious bony lesions. Overlying soft tissues appear unremarkable. IMPRESSION: No acute process. Reviewed by: Barrie Rubio MD on 08/14/2023 1:01 PM [facility] [place] Approved by: Barrie Rubio MD on 08/14/2023 1:01 PM [facility] [place] Station ID: [id number]
[2023-08-14 13:04] LABS: VBG PH 7.351 (7.31-7.41)
[2023-08-14 13:05] LABS: VBG BASE EXCESS -1.5 mmol/L (-2 - +2); VBG HCO3 24.4 mmol/L (23-28); VBG PCO2 45.2 mmHg (41-51); VBG PO2 31.8 mmHg (25-47); VBG TOTAL CO2 25.8 mmol/L (24-29)
[2023-08-14 13:21] LABS: ALBUMIN 4.3 g/dL (3.2-5.5); ALBUMIN/GLOBULIN RATIO 1.7 (1.0-2.2); ALKALINE PHOSPHATASE 82 IU/L (42-121); ALT ALANINE AMINOTRANSFERASE 20 IU/L (10-60); AST ASPARTATE AMINOTRANSFERASE 12 IU/L (10-42); BILIRUBIN,TOTAL 0.7 mg/dL (0.2-1.0); BUN - BLOOD UREA NITROGEN 22 mg/dL (6-20); CALCIUM 9.6 mg/dL (8.5-10.3); CARBON DIOXIDE - CO2 26 mmol/L (21-32); CHLORIDE 97 mmol/L (101-111); CREATININE 1.2 mg/dL (0.6-1.3); GFR - MDRD 61 (>89); GLUCOSE 337 mg/dL (74-104); MAGNESIUM 1.6 mg/dL (1.7-2.3); PHOSPHORUS 3.9 mg/dL (2.5-5.0); SODIUM 133 mmol/L (135-145); TOTAL PROTEIN 6.8 g/dL (6.4-8.9)
[2023-08-14] MEDS ORDERED: INSULIN REGULAR HUMAN 300 UNIT/3 ML VIAL IVP STA (13:33)
[2023-08-14 13:35] LABS: KETONES, SERUM (ACETEST) NEGATIVE (NEGATIVE)
[2023-08-14] MEDS ORDERED: ONDANSETRON 4 MG/2 ML VIAL IVP STA (14:56)
[2023-08-14] MEDS ORDERED: MAGNESIUM OXIDE 400 MG TABLET PO STA (14:57)
[2023-08-14 15:37] VITALS: BP 116/86; O2SAT 92
== END 2023-08-14 15:29 | disposition home or self-care (01) ==
LOC: EDUNIT# → ED 12:26
DX: E11.65 Type 2 diabetes mellitus with hyperglycemia (principal); R06.82 Tachypnea, not elsewhere classified; I10 Essential (primary) hypertension; Z79.4 Long term (current) use of insulin
CPT/HCPCS: 36415; 71045; 80053; 82009; 82803; 83735; 84100; 85025; 96361; 96374; 99283; 99284; A9270; J1815

== ENCOUNTER 2023-08-29 07:26 | Outpatient (CLI) | payer MEDICARE, OTHER ==
--- NOTE | 2023-08-29 08:35 | Ultrasound Report ---
PROCEDURE: Aorta Screening INDICATIONS: SCREENNG FOR CARDIOVASULAR DISEASE, SMOKER TECHNIQUE: Real time scanning was performed of the aorta and iliac arteries, with image documentatio n. COMPARISON: None. FINDINGS: Aorta: Proximal aortic diameter measures 2.7 x 2.6 cm. Mid-aorta measures 2.4 x 2.2 cm. Distal aor tic diameter is 1.8 x 1.8 cm. Iliac arteries: Right common iliac artery measures 1.3 x 1.3 cm. Left common iliac artery measures 1.5 x 1.3 cm. IMPRESSION: No abdominal aortic aneurysm. Ectatic proximal aorta, consider 5 year follow-up. Recommended intervals for follow-up imaging of ectatic aortas and abdominal aortic aneurysms, per ACR consensus guidelines: 2.5-2.9 cm: 5 years 3.0-3.4 cm: 3 years 3.5-3.9 cm: 2 years 4.0-4.4 cm: 1 year 4.5-4.9 cm: 6 months + endovascular referral 5.0-5.5 cm: 3-6 months + endovascular referral Reviewed by: Jesus Song MD on 08/29/2023 8:34 AM PST Approved by: Jesus Song MD on 08/29/2023 8:34 AM PST Station ID: [id number]
--- NOTE | 2023-08-29 13:31 | CT Report ---
PROCEDURE: Low Dose Lung Cancer Screen INDICATIONS: SCREENING FOR CARDIOVASCULAR DISEASE, SMOKER TECHNIQUE: A CT scan of the chest was performed. Intravenous contrast media was not administered. Images were re corded and evaluated at appropriate window settings. Reformats: axial MIP of the chest, coronal and s agittal. For radiation dose reduction, the following was used: automated exposure control, adjustment of mA and/or kV according to patient size. COMPARISON: CXR 08/14/2023. FINDINGS: Image quality: Excellent. Prior cancer history: Unsure. Lungs and pleura: No pleural effusions. No pneumothorax. Mild emphysematous change. Minimal bronchiec tasis. No honeycombing. Central airways are clear. A few tiny pulmonary nodules measuring 0.4 cm or l ess. Mediastinum: Heart size is normal. Coronary stents. No pericardial effusion. No large vessel abnormal ity. No mediastinal adenopathy by size criteria. Chest wall and lower neck: Thyroid is unremarkable. No axillary or supraclavicular adenopathy by size . Bones: No aggressive osseous abnormality. Upper Abdomen: Hepatic steatosis. No adrenal nodule.. IMPRESSION: Lung RAD: 2 - Benign. Recommendation: Continue annual screening in 12 Months with LDCT Non-Lung Significant Findings: None. Coronary stents. Hepatic steatosis. Reviewed by: Cirilo Talamantes MD on 08/29/2023 1:29 PM PST Approved by: Cirilo Talamantes MD on 08/29/2023 1:29 PM PST Station ID: [id number]
== END 2023-08-29 07:27 | disposition home or self-care (01) ==
LOC: DI 07:26
PROVIDERS: ATTEND Student in an Organized Health Care Education/Training Program
DX: Z12.2 Encounter for screening for malignant neoplasm of respiratory organs (principal); Z13.6 Encounter for screening for cardiovascular disorders; I77.819 Aortic ectasia, unspecified site; K76.0 Fatty (change of) liver, not elsewhere classified; Z95.5 Presence of coronary angioplasty implant and graft; F17.210 Nicotine dependence, cigarettes, uncomplicated; J47.9 Bronchiectasis, uncomplicated; J43.9 Emphysema, unspecified; R91.8 Other nonspecific abnormal finding of lung field

== ENCOUNTER 2024-01-03 11:55 | Outpatient (CLI) | payer OTHER ==
--- NOTE | 2024-01-03 16:49 | CT Report ---
PROCEDURE: Pelvis WO INDICATIONS: LOW BACK PAIN TECHNIQUE: Noncontrast 3 mm axial sections acquired through the bony pelvis, with coronal and sagittal reformatt ing. For radiation dose reduction, the following was used: automated exposure control, adjustment of mA and/or kV according to patient size. COMPARISON: None. FINDINGS: Image quality: Diagnostic. Beam hardening artifacts artifacts from pelvic surgical hardware are seen. . Bones: Patient is status post prior fixation of bilateral sacroiliac joints and sacrum with 2 long s urgical screws seen. There is fracture of the more superior fixation screw at the level of right sacr oiliac joint with minimal displacement of distal portion of the screw. Post fixation changes in symph ysis pubis are also seen. No evidence of additional area of hardware loosening or failure. Osteophyti c changes are noted throughout the bony pelvis. No ankylosis or erosion is seen in bilateral sacral i liac joints. No evidence of avascular necrosis of femoral head. No suspicious intraosseous lesion. Mi ld degenerative disc disease in visualized lower lumbar spine is seen. Soft tissues: There is no discrete soft tissue mass or drainable fluid collection. No significant hi p joint effusion. No abnormal soft tissue calcifications. There is no pelvic free fluid of free air. Normal bladder wall thickness is seen. Normal bowel wall thickness is also noted. No pelvic lymphaden opathy. Small bilateral inguinal hernia containing fat only. IMPRESSION: 1. Prior fixation of bilateral sacroiliac joints and symphysis pubis. Fractured long fixation screw a t the level of right sacroiliac joint as above. No other hardware loosening or failure. No acute frac ture or dislocation. 2. Osteoarthritic changes throughout the bony pelvis. No evidence of avascular necrosis of femoral he ad. No ankylosis or erosion is seen in bilateral sacroiliac joints. No suspicious bony lesions. 3. No gross pelvic soft tissue abnormalities. Reviewed by: Aristides Hopson MD on 01/03/2024 4:47 PM PDT Approved by: Aristides Hopson MD on 01/03/2024 4:47 PM PDT Station ID: [id number]
== END 2024-01-03 11:56 | disposition home or self-care (01) ==
LOC: DI 11:55
PROVIDERS: ATTEND Registered Nurse
DX: T84.218A Breakdown (mechanical) of internal fixation device of other bones, initial encounter (principal); M19.09 Primary osteoarthritis, other specified site; M51.36 Other intervertebral disc degeneration, lumbar region